=== PATIENT | male | born 1970 | race Caucasian/White ===

== ENCOUNTER → 2018-12-09 | Outpatient (CLI) | payer BC ==
[~2018-12-09] MED LIST: AMLO5TAB2 PO; FISH OIL OMEGA1 EACH PO; NFPRILOC40 PO; OMEP-10 PO; POLY17PO23 GT; PRED50TA PO; SULF1TAB35 PO; TRIA1TAB2 PO
--- NOTE | 2018-12-09 11:33 | Diagnostic Imaging Report ---
INDICATION: Right-sided chest pain. COMPARISON: 01/28/2013. FINDINGS: Frontal and lateral views of the chest demonstrate normal heart size and pulmonary vascularity. The lungs are clear. There are no signs of infiltrate, pleural effusions or pneumothoraces. The visualized osseous structures show no acute abnormalities. IMPRESSION: 1. No acute process. No signs of infiltrates, effusions or pneumothoraces. Dictated by: Dictated on workstation # [id number]
== END ==
LOC: RAD 11:15
PROVIDERS: ATTEND Nurse Practitioner
DX: R07.89 Other chest pain (principal); R06.02 Shortness of breath
CPT/HCPCS: 71046

== ENCOUNTER 2022-04-26 17:04 | Emergency (ER) | payer OTHER ==
[~2022-04-26] VITALS: Ht 177 cm; Wt 91.0 kg
[2022-04-26] MEDS ORDERED: NS IV 1000 ML 1,000 ML IV STA ×2 (17:39→19:08)
--- NOTE | 2022-04-26 17:44 | ED Abdominal Pain ---
General Chief Complaint: Abdominal/GI Problems Stated Complaint: N/V,DIARRHEA Source of Information: Patient Exam Limitations: No Limitations History of Present Illness Date Seen by Provider: Apr 26, 2022 Time Seen by Provider: 17:43 Initial Comments Patient is a 52-year-old male who presents ED with nausea vomiting diarrhea abdominal pain. Symptoms started on Sunday with episode of vomiting generalized abdominal discomfort and then diarrhea. He states he has been having 10+ episodes of diarrhea daily without any blood or mucus. Reports generalized abdominal pain worse to his lower abdomen. Decreased urine output. Has not been able to eat as it makes him sick. attempted to eat yogurt. Patient only vomited once on Sunday. No history of previous abdominal surgery. Did return from the [facility] over the weekend and did eat oysters but no one else got sick. Denies of any fever, chest pain, cough, sore throat, ear pain, headache. Patient states he feels dehydrated and weak. Patient takes Prilosec and attempted to take Carafate at home. Denies history of ulcers Allergies and Home Medications Allergies Coded Allergies: Penicillins (Verified Allergy, Unknown, 09/26/14) Patient Home Medication List Home Medication List Reviewed: Yes Amlodipine Besylate (Amlodipine Besylate) 5 Mg Tablet, 5 MG PO DAILY, (Reported) Entered as Reported by: ELLEN BURCH on 11/13/141255 Metronidazole (Metronidazole) 500 Mg Tablet, 500 MG PO TID Prescribed by: LYNN HOWARD on 04/26/222021 Omeprazole (Prilosec 20 Mg) 20 Mg Capsule.dr, 20 MG PO DAILY, (Reported) Entered as Reported by: IVETH LEES on 09/26/141917 Ondansetron (Ondansetron Odt) 4 Mg Tab.rapdis, 4 MG PO Q4H Prescribed by: LYNN HOWARD on 04/26/222021 Polyethylene Glycol (Miralax 17 Gm Packet) 17 Gm Pack, 17 GM GT BID, (Reported) Entered as Reported by: ELLEN BURCH on 11/13/14 1256 Review of Systems Review of Systems Constitutional: No chills, No diaphoresis; malaise, weakness EENTM: No Eye Pain Respiratory: Denies Cough, Denies Shortness of Air, Denies SOA at Rest Cardiovascular: Denies Chest Pain Gastrointestinal: Abdominal Pain, Diarrhea, Nausea, Vomiting Musculoskeletal: No back pain, No joint pain Skin: No change in color, No change in hair/nails Psychiatric/Neurological: Denies Anxiety, Denies Depressed All Other Systems Reviewed Negative Unless Noted: Yes Past Thinjsw-Rknhba-Wybqne Hx Immunizations Up To Date Tetanus Booster (TDap): Unknown Seasonal Allergies Seasonal Allergies: No Past Medical History Hypertension Reproductive Disorders: No Kidney Stones Gastroesophageal Reflux Adverse Reaction/Blood Tranf: No Physical Exam Vital Signs Vital Signs - First Documented 04/26/22 17:30 Temp 36.5 Pulse 98 Resp 20 B/P (MAP) 150/113 (125) Pulse Ox 96 O2 Delivery Room Air Capillary Refill : Height/Weight/BMI Height: 5'11.00" Weight: 199lbs. oz. 90.951946sq; BMI Method:Stated General Appearance: WD/WN, no apparent distress HEENT: PERRL/EOMI, normal ENT inspection, TMs normal, pharynx normal Neck: non-tender, full range of motion, supple Respiratory: chest non-tender, lungs clear, normal breath sounds, no respiratory distress, no accessory muscle use Cardiovascular: regular rate, rhythm, no edema, no gallop, no JVD Gastrointestinal: normal bowel sounds, soft, no organomegaly, tenderness (Left lower quadrant tenderness) Extremities: normal range of motion, non-tender, normal inspection Back: normal inspection, no CVA tenderness, no vertebral tenderness Neurologic/Psychiatric: sketch maker II-XII nml as tested, no motor/sensory deficits, alert, normal mood/affect, oriented x 3 Skin: normal color, warm/dry Progress/Results/Core Measures Results/Orders Lab Results Laboratory Tests Test 04/26/22 17:30 04/26/22 17:55 Range/Units White Blood Count 7.5 4.3-11.0 10^3/uL Red Blood Count 5.22 4.30-5.52 10^6/uL Hemoglobin 15.7 13.3-17.7 g/dL Hematocrit 44 40-54 % Mean Corpuscular Volume 84 80-99 fL Mean Corpuscular Hemoglobin 30 25-34 pg Mean Corpuscular Hemoglobin Concent 36 32-36 g/dL Red Cell Distribution Width 12.3 10.0-14.5 % Platelet Count 372 130-400 10^3/uL Mean Platelet Volume 9.6 9.0-12.2 fL Immature Granulocyte % (Auto) 0 % Neutrophils (%) (Auto) 59 42-75 % Lymphocytes (%) (Auto) 23 12-44 % Monocytes (%) (Auto) 14 H 0-12 % Eosinophils (%) (Auto) 4 0-10 % Basophils (%) (Auto) 1 0-10 % Neutrophils # (Auto) 4.4 1.8-7.8 10^3/uL Lymphocytes # (Auto) 1.7 1.0-4.0 10^3/uL Monocytes # (Auto) 1.0 0.0-1.0 10^3/uL Eosinophils # (Auto) 0.3 0.0-0.3 10^3/uL Basophils # (Auto) 0.1 0.0-0.1 10^3/uL Immature Granulocyte # (Auto) 0.0 0.0-0.1 10^3/uL Sodium Level 134 L 135-145 MMOL/L Potassium Level 3.4 L 3.6-5.0 MMOL/L Chloride Level 98 98-107 MMOL/L Carbon Dioxide Level 25 21-32 MMOL/L Anion Gap 11 5-14 MMOL/L Blood Urea Nitrogen 13 7-18 MG/DL Creatinine 0.92 0.60-1.30 MG/DL Estimat Glomerular Filtration Rate 101 BUN/Creatinine Ratio 14 Glucose Level 107 H 70-105 MG/DL Calcium Level 9.8 8.5-10.1 MG/DL Corrected Calcium 9.4 8.5-10.1 MG/DL Magnesium Level 2.1 1.6-2.4 MG/DL Total Bilirubin 1.1 H 0.1-1.0 MG/DL Aspartate Amino Transf (AST/SGOT) 21 5-34 U/L Alanine Aminotransferase (ALT/SGPT) 39 0-55 U/L Alkaline Phosphatase 82 40-136 U/L Total Protein 7.9 6.4-8.2 GM/DL Albumin 4.5 3.2-4.5 GM/DL Lipase 44 8-78 U/L Influenza Type A (RT-PCR) Not Detected Not Detecte Influenza Type B (RT-PCR) Not Detected Not Detecte SARS-CoV-2 RNA (RT-PCR) Not Detected Not Detecte My Orders Orders - BENNETT,RODRIGUEZ A PA Covid 19 Inhouse Test (04/26/22 17:34) Influenza A And B By Pcr (04/26/22 17:34) Cbc With Automated Diff (04/26/22 17:39) Comprehensive Metabolic Panel (04/26/22 17:39) Lipase (04/26/22 17:39) Ns Iv 1000 Ml (Sodium Chloride 0.9%) (04/26/22 17:39) Ondansetron Injection (Zofran Injectio (04/26/22 17:45) Magnesium (04/26/22 17:39) C Difficile Ag + Toxin A/B. (04/26/22 17:39) Stool Culture (04/26/22 17:39) Parasite Scrn Stool Giard Cryp (04/26/22 17:39) Ct Abdomen/Pelvis W (04/26/22 17:44) Iohexol Injection (Omnipaque 350 Mg/Ml 1 (04/26/22 18:00) Received Contrast (Hold Metformin- Contr (04/26/22 18:00) Ns (Ivpb) (Sodium Chloride 0.9% Ivpb Bag (04/26/22 18:00) Urinalysis (04/26/22 18:33) Ns Iv 1000 Ml (Sodium Chloride 0.9%) (04/26/22 19:08) Rx-Ondansetron Po (Rx-Zofran Po) (04/26/22 20:30) Medications Given in ED Current Medications Medications Dose Ordered Sig/Tom Route Start Time Stop Time Status Last Admin Dose Admin Iohexol 100 ml ONCE ONCE IV 04/26/22 18:00 04/26/22 18:01 DC 04/26/22 18:36 100 ML Ondansetron HCl 4 mg ONCE ONCE IVP 04/26/22 17:45 04/26/22 17:46 DC 04/26/22 17:57 4 MG Sodium Chloride 100 ml ONCE ONCE IV 04/26/22 18:00 04/26/22 18:01 DC 04/26/22 18:36 80 ML Vital Signs/I&O 04/26/22 17:30 Temp 36.5 Pulse 98 Resp 20 B/P (MAP) 150/113 (125) Pulse Ox 96 O2 Delivery Room Air Departure Communication (PCP) Patient presents ED with abdominal pain and diarrhea. Return from the [facility] over the weekend. He did eat oysters but states family members did as well and no one else became sick. He Did drink [facility] water. Has been having some vomiting and diarrhea 10+ episodes daily without any blood or mucus. Does have some left lower quadrant tenderness. Patient with normal white blood count. Heart rate at 98. Slightly hypertensive. Was given Zofran and 2 L of fluid. Slightly dehydrated here normal kidney function. Patient urinated before providing a urine sample. Waited for 3 hours for patient to provide a stool sample. Did try oral fluids without any vomiting but did not provide stool culture. Patient is concerned for possible GI infection. Due to the tenderness to his left lower quadrant rule out colitis versus diverticulitis CT abdomen and pelvis was ordered. Imaging is concerning for enteritis. No evidence of diverticulitis. Due to not able to provide stool culture patient was requesting to be discharged. Discussed with patient would be more concerning if he had a fever, elevated white blood count, blood or mucousy stool. His lab work was reassuring. This may be viral or something that he may have ate. Did offer outpatient lab work for stool culture, ova and parasitic, C. difficile. Was sent by primary care physician for stool cultures. Family and patient was insisting for antibiotics. Discussed with patient due to lab work and his current presentation and results that I do not think antibiotics is necessarily at this time. However due to potential parasitic from the water will consider Flagyl. Recommend probiotics. Discussed oral fluids, electrolytes. If diarrhea improves work to a more of a brat diet. If any worsening pain or symptoms fever, dark tarry stool or bloody stool to return back to ED or follow- up with your PCP Impression Primary Impression: Diarrhea Disposition: 01 HOME, SELF-CARE Condition: Stable Departure-Patient Inst. Decision time for Depature: 20:21 Referrals: ROQUE HERNANDEZ MD (PCP/Family) Primary Care Physician Patient Instructions: Diarrhea, Adult ED Add. Discharge Instructions: Recommend staying hydrated. Clear liquids for the next 2 to 3 days. May increase diet to more of a brat diet once diarrhea improves. Zofran for nausea. All discharge instructions reviewed with patient and/or family. Voiced understanding. Scripts Ondansetron (Ondansetron Odt) 4 Mg Tab.rapdis 4 MG PO Q4H, #8 TAB Prov: RODRIGUEZ BENNETT 04/26/22 Metronidazole (Metronidazole) 500 Mg Tablet 500 MG PO TID for 5 Days, #15 TAB Prov: RODRIGUEZ BENNETT 04/26/22 RODRIGUEZ BENNETT Apr 26, 2022 17:44
[2022-04-26] MEDS ORDERED: ONDANSETRON 4 MG/2 ML (SDV) Z0FRAN IVP ONE (17:45)
[2022-04-26 17:49] LABS: ALBUMIN 4.5 GM/DL (3.2-4.5)
[2022-04-26 17:50] LABS: POTASSIUM 3.4 MMOL/L (3.6-5.0)
[2022-04-26 17:51] LABS: BASOPHILS # (AUTO) 0.1 10^3/uL (0.0-0.1); BASOPHILS % (AUTO) 1 % (0-10); CALCIUM 9.8 MG/DL (8.5-10.1); EOSINOPHILS # (AUTO) 0.3 10^3/uL (0.0-0.3); EOSINOPHILS % (AUTO) 4 % (0-10); HEMATOCRIT 44 % (40-54); HEMOGLOBIN 15.7 g/dL (13.3-17.7); LYMPHOCYTES # (AUTO) 1.7 10^3/uL (1.0-4.0); LYMPHOCYTES % (AUTO) 23 % (12-44); MEAN CORPUSCULAR HEMOGLOBIN 30 pg (25-34); MEAN CORPUSCULAR HGB CONC 36 g/dL (32-36); MEAN CORPUSCULAR VOLUME 84 fL (80-99); MEAN PLATELET VOLUME 9.6 fL (9.0-12.2); MONOCYTES % (AUTO) 14 % (0-12); NEUTROPHILS # (AUTO) 4.4 10^3/uL (1.8-7.8); NEUTROPHILS % (AUTO) 59 % (42-75); PLATELET COUNT 372 10^3/uL (130-400); WHITE BLOOD COUNT 7.5 10^3/uL (4.3-11.0)
[2022-04-26 17:52] LABS: TOTAL PROTEIN 7.9 GM/DL (6.4-8.2)
[2022-04-26 17:54] LABS: BILIRUBIN,TOTAL 1.1 MG/DL (0.1-1.0)
[2022-04-26 17:55] LABS: CREATININE SERUM 0.92 MG/DL (0.60-1.30)
[2022-04-26 17:58] LABS: MAGNESIUM 2.1 MG/DL (1.6-2.4)
[2022-04-26] MEDS ORDERED: HOLD METFORMIN - RECEIVED CONTRAST 20 ML VIAL IV SCH (18:00)
[2022-04-26] MEDS ORDERED: NS 100 ML (IVPB) BAG IV ONE (18:00)
[2022-04-26] MEDS ORDERED: IOHEXOL 350 MG/ML 100 ML (OMNIPAQUE 350) VIAL IV ONE (18:00)
--- NOTE | 2022-04-26 18:54 | Diagnostic Imaging Report ---
PROCEDURE: CT abdomen and pelvis with contrast. TECHNIQUE: Multiple contiguous axial images were obtained through the abdomen and pelvis after administration of intravenous contrast. Auto Exposure Controls were utilized during the CT exam to meet ALARA standards for radiation dose reduction. All CT scans use one or more of the following dose optimizing techniques: Automated exposure control, MA and/or KvP adjustment based on patient size and exam type or iterative reconstruction. INDICATION: Left lower quadrant abdominal pain. COMPARISON: 09/26/2014. FINDINGS: Lung bases demonstrate no findings of pneumonia or edema. There is no pleural or pericardial effusion. There is some minimal atelectasis in the right middle lobe. The liver demonstrates no evidence of a focal intrahepatic abnormality. There are multiple gallstones within the gallbladder without gallbladder thickening or findings of biliary dilatation. The portal veins are patent. Pancreas demonstrates mild atrophy without focal abnormality. The spleen is normal in size. There is no adrenal mass. The kidneys enhance normally and are nonobstructed. There is a low-density simple-appearing left renal cyst. There are no findings of perinephric fat stranding. The ureters are normal in caliber. There are diffuse fluid-filled loops of both small and large bowel. There is no bowel dilation present to suggest obstruction. There are scattered colonic diverticula, but no regions of focal colonic thickening or pericolonic fat stranding to suggest diverticulitis. The appendix is normal. There is a suggestion that there may be some slight mucosal hyperenhancement at the level of the terminal ileum. There is trace free fluid within the pelvis. There are no findings of abscess. There is no free air. There is no adenopathy. The bladder is unremarkable. The aorta is normal in caliber. There is no acute osseous abnormality. IMPRESSION: 1. Diffuse fluid-filled loops of nondilated small and large bowel. There may be some slight mucosal enhancement of the distal ileum. There is diverticulosis, but no evidence to suggest diverticulitis. The liquid-density stool contents suggest a diarrheal disease and may reflect an enteritis. There are no findings to suggest obstruction. 2. The appendix is normal. 3. Trace free fluid within the pelvis without findings of abscess or free air. 4. Cholelithiasis without biliary dilatation. Dictated by: Dictated on workstation # [id number]
[2022-04-26] MEDS ORDERED: METR-145 PO (20:22)
[2022-04-26] MEDS ORDERED: ONDA4TAB11 PO (20:22)
[2022-04-26 20:28] VITALS: BP 122/70
[2022-04-26 20:30] LABS: BILIRUBIN,URINE NEGATIVE (NEGATIVE); CLARITY,URINE CLEAR; COLOR,URINE YELLOW; GLUCOSE, URINE (UA) NEGATIVE (NEGATIVE); KETONES,URINE 1+ (NEGATIVE); LEUKOCYTE ESTERASE ,URINE NEGATIVE (NEGATIVE); NITRITE,URINE NEGATIVE (NEGATIVE); PH,URINE 5.5 (5-9); PROTEIN,URINE 1+ (NEGATIVE)
[2022-04-26] MEDS ORDERED: RX-ONDANSETRON 4 MG ODT (ZOFRAN) PPK #4 PO ONE (20:30)
[2022-04-26 20:39] LABS: BACTERIA,URINE NEGATIVE /HPF; SQUAMOUS EPITHELIAL CELL,UR RARE /HPF; WBC,URINE RARE /HPF
== END 2022-04-26 20:29 | disposition home or self-care (01) ==
LOC: EDUNIT# 17:04 → ER 17:06
DX: R19.7 Diarrhea, unspecified (principal); R11.2 Nausea with vomiting, unspecified; R10.32 Left lower quadrant pain; I10 Essential (primary) hypertension; E86.0 Dehydration; Z20.822 Contact with and (suspected) exposure to COVID-19
CPT/HCPCS: 36415; 74177; 80053; 81000; 83690; 83735; 85025; 87328; 87636

== ENCOUNTER → 2022-04-27 | Outpatient (CLI) | payer OTHER ==
[~2022-04-27] MED LIST changes: +METR-145 PO; +ONDA4TAB11 PO
== END ==
LOC: LABNPT 16:00
PROVIDERS: ATTEND Physician Assistant
DX: R19.7 Diarrhea, unspecified (principal)
CPT/HCPCS: 87015; 87045; 87046; 87324; 87328; 87329; 87449; 87899

== ENCOUNTER 2023-05-11 01:19 | Emergency (ER) | payer OTHER ==
[~2023-05-11] VITALS: Ht 177 cm; Wt 92.0 kg
[2023-05-11] MEDS ORDERED: ASPIRIN 81 MG CHEWABLE TABLET PO ONE (01:45)
[2023-05-11 01:52] LABS: BASOPHILS # (AUTO) 0.2 10^3/uL (0.0-0.1); BASOPHILS % (AUTO) 2 % (0-10); EOSINOPHILS # (AUTO) 0.5 10^3/uL (0.0-0.3); EOSINOPHILS % (AUTO) 6 % (0-10); HEMATOCRIT 42 % (40-54); HEMOGLOBIN 14.3 g/dL (13.3-17.7); LYMPHOCYTES # (AUTO) 3.3 10^3/uL (1.0-4.0); LYMPHOCYTES % (AUTO) 39 % (12-44); MEAN CORPUSCULAR HEMOGLOBIN 31 pg (25-34); MEAN CORPUSCULAR HGB CONC 34 g/dL (32-36); MEAN CORPUSCULAR VOLUME 90 fL (80-99); MEAN PLATELET VOLUME 9.8 fL (9.0-12.2); MONOCYTES # (AUTO) 0.4 10^3/uL (0.0-1.0); MONOCYTES % (AUTO) 5 % (0-12); NEUTROPHILS % (AUTO) 47 % (42-75); PLATELET COUNT 272 10^3/uL (130-400); WHITE BLOOD COUNT 8.4 10^3/uL (4.3-11.0)
[2023-05-11 02:07] LABS: INR 0.9 (0.8-1.4); PROTHROMBIN TIME PATIENT 12.2 SEC (12.2-14.7)
[2023-05-11 02:08] LABS: PARTIAL THROMBOPLASTIN TIME 35 SEC (24-35)
[2023-05-11 02:09] LABS: ALBUMIN 4.3 GM/DL (3.2-4.5); CHLORIDE 107 MMOL/L (98-107); POTASSIUM 3.7 MMOL/L (3.6-5.0); SODIUM 140 MMOL/L (135-145)
[2023-05-11 02:11] LABS: AMYLASE 51 U/L (25-125)
[2023-05-11 02:12] LABS: GLUCOSE 164 MG/DL (70-105); TOTAL PROTEIN 7.4 GM/DL (6.4-8.2)
[2023-05-11 02:13] LABS: BILIRUBIN,TOTAL 0.4 MG/DL (0.1-1.0); CARBON DIOXIDE 22 MMOL/L (21-32)
[2023-05-11 02:15] LABS: ALKALINE PHOSPHATASE 86 U/L (40-136); CREATININE SERUM 0.97 MG/DL (0.60-1.30); FIBRIN DEGRADATION PRODUCTS < 0.27 UG/ML (0.00-0.49); GFR ESTIMATED 94
[2023-05-11 02:16] LABS: BUN/CREATININE RATIO 13
[2023-05-11 02:18] LABS: ALANINE AMINOTRANSFERASE 50 U/L (0-55); MAGNESIUM 2.1 MG/DL (1.6-2.4)
[2023-05-11 02:19] LABS: LIPASE 30 U/L (8-78)
[2023-05-11 02:20] LABS: CREATINE KINASE 146 U/L (30-200)
[2023-05-11 02:26] LABS: CREATINE KINASE MB 0.9 NG/ML (<6.6)
[2023-05-11 03:49] LABS: AMPHETAMINE SCREEN, URINE NEGATIVE (NEGATIVE); BARBITURATE SCREEN URINE NEGATIVE (NEGATIVE); BENZODIAZEPINES SCREEN URINE NEGATIVE (NEGATIVE); CANNABINOID SCREEN, URINE NEGATIVE (NEGATIVE); COCAINE SCREEN URINE NEGATIVE (NEGATIVE); METHADONE STAT NEGATIVE (NEGATIVE); OPIATE SCREEN URINE NEGATIVE (NEGATIVE); OXYCODONE STAT NEGATIVE (NEGATIVE); PROPOXYPHENE STAT NEGATIVE (NEGATIVE); TRICYCLIC ANTIDEPRESSANTS SCRE NEGATIVE (NEGATIVE)
[2023-05-11] MEDS ORDERED: HOLD METFORMIN - RECEIVED CONTRAST 20 ML VIAL IV SCH (04:00)
[2023-05-11] MEDS ORDERED: IOHEXOL 350 MG/ML 100 ML (OMNIPAQUE 350) VIAL IV ONE (04:00)
[2023-05-11] MEDS ORDERED: NS 100 ML (IVPB) BAG IV ONE (04:00)
--- NOTE | 2023-05-11 04:05 | ED General ---
General Chief Complaint: Respiratory Problems Stated Complaint: SOB,COUGH,CONGESTED Nursing Triage Note: PATIENT AMBULATORY TO ED WITH COMPLAINT OF SOB X1 MONTH. STATES WORSE AT NIGHT, STATES ABOUT EVERY TWO HOURS AWAKE COUGHING, LOTS OF MUCOUS. PATIENT STATES TONIGHT BREATHING WORSE, STATES FEELS LIKE BREATHING THROUGH A STRAW. DENIES TREATMENT PRIOR TO TONIGHT. Source of Information: Patient History of Present Illness Date Seen by Provider: May 11, 2023 Time Seen by Provider: 01:34 Initial Comments PT ARRIVES VIA POV FROM HOME WITH FEMALE S.O. PT STATES FOR AT LEAST A MONTH HE HAS HAD: -COUGH AND CONGESTION--COUGH WITH CLEAR SPUTUM. STATES SOMETIMES HE COUGHS UNTIL HE THROWS UP MUCOUS, AND SOMETIMES COUGHS SO HARD HE FEELS DIZZY AND FEELS LIKE HE IS GOING TO PASS OUT -SHORTNESS OF BREATH--STATES IT FEELS LIKE HE IS BREATHING THROUGH A STRAW -CHEST PAIN / TIGHTNESS -BILATERAL SHOULDER BLADE PAIN/TIGHTNESS NO FEVER/SWEATS/CHILLS NO NAUSEA/VOMITING NO SWELLING IN LEGS/FEET NO PALPITATIONS NOTHING WORSENS OR IMPROVES SYMPTOMS, BUT SYMPTOMS WORSE AT NIGHT WITH COUGH FREQUENTLY WAKING HIM UP DURING THE NIGHT. SYMPTOMS ARE CONSTANT HE HAS NOT TAKEN ANYTHING FOR ANY OF HIS SYMPTOMS AT ANY TIME SYMPTOMS NO DIFFERENT TONIGHT IN ANYWAY HAS NOT SOUGHT CARE UNTIL TONIGHT NO HISTORY OF SIMILAR PT IS NOT COVID OR FLU VACCINATED PT IS FORMER SMOKER--1 PPD--QUIT YEARS AGO PT DRINKS "A FEW BEERS" ON REGULAR BASIS. CLAIMS NONE TODAY PT HAS HTN. DENIES ANY PRIOR SURGERIES PCP: DR. HERNANDEZ--APPOINTMENT SOMETIME IN . ALSO GOES TO [facility] AND HAS AN APPOINTMENT THERE JUN 23 Allergies and Home Medications Allergies Coded Allergies: Penicillins (Verified Allergy, Unknown, 09/26/14) Patient Home Medication List Home Medication List Reviewed: Yes Amlodipine Besylate (Amlodipine Besylate) 5 Mg Tablet, 5 MG PO DAILY, (Reported) Entered as Reported by: ELLEN BURCH on 11/13/14 125 Metronidazole (Metronidazole) 500 Mg Tablet, 500 MG PO TID Prescribed by: LYNN HOWARD on 04/26/222021 Omeprazole (Prilosec 20 Mg) 20 Mg Capsule., 20 MG PO DAILY, (Reported) Entered as Reported by: IVETH LEES on 09/26/141917 Ondansetron (Ondansetron Odt) 4 Mg Tab.rapdis, 4 MG PO Q4H Prescribed by: LYNN HOWARD on 04/26/222021 Polyethylene Glycol (Miralax 17 Gm Packet) 17 Gm Pack, 17 GM GT BID, (Reported) Entered as Reported by: ELLEN BURCH on 11/13/14 1256 Review of Systems Review of Systems Constitutional: no symptoms reported; No chills, No diaphoresis, No fever EENTM: no symptoms reported; No hoarseness, No nose congestion, No throat pain, No throat swelling Respiratory: see HPI, cough; No orthopnea; phlegm, short of breath; No stridor, No wheezing Cardiovascular: see HPI, chest pain; No edema, No palpitations, No syncope Gastrointestinal: no symptoms reported Genitourinary: no symptoms reported Musculoskeletal: see HPI, back pain Skin: no symptoms reported Psychiatric/Neurological: No Symptoms Reported Hematologic/Lymphatic: No Symptoms Reported Immunological/Allergic: no symptoms reported Past Sxzggob-Rmyqns-Dctcwi Hx Patient Social History Tobacco Use?: Yes Tobacco type used: Cigarettes Smoking Status: Former Smoker Smokeless Tobacco Frequency: Current Everyday User Substance use?: No Alcohol Use?: Yes Alcohol type: Beer Alcohol Frequency: Couple times a week Immunizations Up To Date Tetanus Booster (TDap): Unknown Influenza Vaccine Up-to-Date: No; Not Current First/Initial COVID19 Vaccinat: n/a Second COVID19 Vaccination Levi: n/a Third COVID19 Vaccination Date: n/a Seasonal Allergies Seasonal Allergies: No Past Medical History Surgeries: Yes (COLONOSCOPY) Respiratory: No Cardiac: Yes Hypertension Reproductive Disorders: No Genitourinary: Yes Kidney Stones Gastrointestinal: Yes Gastroesophageal Reflux Musculoskeletal: No Endocrine: No HEENT: No Cancer: No Psychosocial: No Integumentary: No Blood Disorders: No Adverse Reaction/Blood Tranf: No Family Medical History SOCIAL HISTORY: -SMOKED 1 PPD, QUIT A FEW YEARS AGO -ETOH--12 PACK/WEEKEND -DENIES DRUG USE Physical Exam Vital Signs Vital Signs - First Documented 05/11/23 01:32 Temp 37.0 Pulse 78 Resp 18 B/P (MAP) 142/97 (112) Pulse Ox 98 O2 Delivery Room Air Capillary Refill : Less Than 3 Seconds Height, Weight, BMI Height: 5'11.00" Weight: 199lbs. oz. 90.139161nw; 29.00 BMI Method:Stated General Appearance: No Apparent Distress, WD/WN, Other (DOES NOT APPEAR ILL OR TO BE IN ANY DISCOMFORT OR DISTRESS) HEENT: PERRL/EOMI, Normal ENT Inspection Neck: Normal Inspection Respiratory: Chest Non Tender, Normal Breath Sounds, No Accessory Muscle Use, No Respiratory Distress Cardiovascular: Regular Rate, Rhythm, No Edema, No Gallop, No JVD, No Murmur, Normal Peripheral Pulses Gastrointestinal: Normal Bowel Sounds, No Organomegaly, No Pulsatile Mass, Non Tender, Soft Back: Normal Inspection Extremity: Normal Capillary Refill, Normal Inspection, Normal Range of Motion, Non Tender, No Calf Tenderness, No Pedal Edema Neurologic/Psychiatric: Alert, Oriented x3, No Motor/Sensory Deficits, Normal Mood/Affect, video intern II-XII Norm as Tested Skin: Normal Color, Warm/Dry, Tattoos/Piercings (TATTOOS) Progress/Results/Core Measures Suspected Sepsis SIRS Temperature: Pulse: 78 Respiratory Rate: 18 Laboratory Tests 05/11/23 01:45: White Blood Count 8.4 Blood Pressure 142 /97 Mean: 112 Laboratory Tests 05/11/23 01:45: Creatinine 0.97, INR Comment 0.9, Platelet Count 272, Total Bilirubin 0.4 Results/Orders Lab Results Laboratory Tests Test 05/11/23 01:35 05/11/23 01:45 05/11/23 03:28 Range/Units Influenza Type A (RT-PCR) Not Detected Not Detecte Influenza Type B (RT-PCR) Not Detected Not Detecte SARS-CoV-2 RNA (RT-PCR) Not Detected Not Detecte White Blood Count 8.4 4.3-11.0 10^3/uL Red Blood Count 4.69 4.30-5.52 10^6/uL Hemoglobin 14.3 13.3-17.7 g/dL Hematocrit 42 40-54 % Mean Corpuscular Volume 90 80-99 fL Mean Corpuscular Hemoglobin 31 25-34 pg Mean Corpuscular Hemoglobin Concent 34 32-36 g/dL Red Cell Distribution Width 13.4 10.0-14.5 % Platelet Count 272 130-400 10^3/uL Mean Platelet Volume 9.8 9.0-12.2 fL Immature Granulocyte % (Auto) 0 % Neutrophils (%) (Auto) 47 42-75 % Lymphocytes (%) (Auto) 39 12-44 % Monocytes (%) (Auto) 5 0-12 % Eosinophils (%) (Auto) 6 0-10 % Basophils (%) (Auto) 2 0-10 % Neutrophils # (Auto) 4.0 1.8-7.8 10^3/uL Lymphocytes # (Auto) 3.3 1.0-4.0 10^3/uL Monocytes # (Auto) 0.4 0.0-1.0 10^3/uL Eosinophils # (Auto) 0.5 H 0.0-0.3 10^3/uL Basophils # (Auto) 0.2 H 0.0-0.1 10^3/uL Immature Granulocyte # (Auto) 0.0 0.0-0.1 10^3/uL Prothrombin Time 12.2 12.2-14.7 SEC INR Comment 0.9 0.8-1.4 Activated Partial Thromboplast Time 35 24-35 SEC D-Dimer < 0.27 0.00-0.49 UG/ML Sodium Level 140 135-145 MMOL/L Potassium Level 3.7 3.6-5.0 MMOL/L Chloride Level 107 98-107 MMOL/L Carbon Dioxide Level 22 21-32 MMOL/L Anion Gap 11 5-14 MMOL/L Blood Urea Nitrogen 13 7-18 MG/DL Creatinine 0.97 0.60-1.30 MG/DL Estimat Glomerular Filtration Rate 94 BUN/Creatinine Ratio 13 Glucose Level 164 H 70-105 MG/DL Calcium Level 9.0 8.5-10.1 MG/DL Corrected Calcium 8.8 8.5-10.1 MG/DL Magnesium Level 2.1 1.6-2.4 MG/DL Total Bilirubin 0.4 0.1-1.0 MG/DL Aspartate Amino Transf (AST/SGOT) 26 5-34 U/L Alanine Aminotransferase (ALT/SGPT) 50 0-55 U/L Alkaline Phosphatase 86 40-136 U/L Total Creatine Kinase 146 30-200 U/L Creatine Kinase MB 0.9 <6.6 NG/ML Myoglobin 24.5 10.0-92.0 NG/ML Troponin I < 0.028 <0.028 NG/ML B-Type Natriuretic Peptide 19.5 <100.0 PG/ML Total Protein 7.4 6.4-8.2 GM/DL Albumin 4.3 3.2-4.5 GM/DL Amylase Level 51 25-125 U/L Lipase 30 8-78 U/L Serum Alcohol < 10 <10 MG/DL Urine Opiates Screen NEGATIVE NEGATIVE Urine Oxycodone Screen NEGATIVE NEGATIVE Urine Methadone Screen NEGATIVE NEGATIVE Urine Propoxyphene Screen NEGATIVE NEGATIVE Urine Barbiturates Screen NEGATIVE NEGATIVE Ur Tricyclic Antidepressants Screen NEGATIVE NEGATIVE Urine Phencyclidine Screen NEGATIVE NEGATIVE Urine Amphetamines Screen NEGATIVE NEGATIVE Urine Methamphetamines Screen NEGATIVE NEGATIVE Urine Benzodiazepines Screen NEGATIVE NEGATIVE Urine Cocaine Screen NEGATIVE NEGATIVE Urine Cannabinoids Screen NEGATIVE NEGATIVE My Orders Orders - RAFAL DEL CID DO Covid 19 Inhouse Test (05/11/23 01:32) Influenza A And B By Pcr (05/11/23 01:32) Cbc With Automated Diff (05/11/23 01:37) Magnesium (05/11/23 01:37) Chest 1 View, Ap/Pa Only (05/11/23 01:37) Ekg Tracing (05/11/23 01:37) Comprehensive Metabolic Panel (05/11/23 01:37) Myoglobin Serum (05/11/23 01:37) Protime With Inr (05/11/23 01:37) Partial Thromboplastin Time (05/11/23 01:37) O2 (05/11/23 01:37) Monitor-Rhythm Ecg Trace Only (05/11/23 01:37) Ed Iv/Invasive Line Start (05/11/23 01:37) Creatine Kinase (05/11/23 01:37) Creatine Kinase Mb (05/11/23 01:37) Lipase (05/11/23 01:37) Amylase (05/11/23 01:37) Bnp Delta (05/11/23 01:37) Fibrin Degradation Products (05/11/23 01:37) Troponin I [place] (05/11/23 01:37) Aspirin Chewable Tablet (Aspirin Chewabl (05/11/23 01:45) Alcohol (05/11/23 01:37) Drug Screen Stat (Urine) (05/11/23 01:37) Ct Angio Chest W (R/O Pe) (05/11/23 02:55) Ct Neck (Soft Tissue) Wo (05/11/23 03:01) Iohexol Injection (Omnipaque 350 Mg/Ml 1 (05/11/23 04:00) Received Contrast (Hold Metformin- Contr (05/11/23 04:00) Ns (Ivpb) 100 Ml (Sodium Chloride 0.9% 1 (05/11/23 04:00) Medications Given in ED Current Medications Medications Dose Ordered Sig/Tom Route Start Time Stop Time Status Last Admin Dose Admin Aspirin 324 mg ONCE ONCE PO 05/11/23 01:45 05/11/23 01:46 DC 05/11/23 01:54 324 MG Iohexol 100 ml ONCE ONCE IV 05/11/23 04:00 05/11/23 04:01 DC 05/11/23 03:52 78 ML Sodium Chloride 100 ml ONCE ONCE IV 05/11/23 04:00 05/11/23 04:01 DC 05/11/23 03:52 70 ML Vital Signs/I&O 05/11/23 01:32 Temp 37.0 Pulse 78 Resp 18 B/P (MAP) 142/97 (112) Pulse Ox 98 O2 Delivery Room Air Capillary Refill : Less Than 3 Seconds Blood Pressure Mean: 112 Progress Note : Progress Note VITALS ON ARRIVAL: TEMP 37.0=98.6, HR 78, RR 18, BP 142/97, O2 SAT 98-100% ON ROOM AIR LABS: -CBC NORMAL -CMP NORMAL, GLUCOSE 164 -TROPONIN NEGATIVE -BNP NORMAL -D-DIMER NORMAL/NEGATIVE -ETOH AND UDS NEGATIVE -COVID AND FLU TESTS NEGATIVE EKG IS NORMAL CXR IS UNREMARKABLE, PENDING RADIOLOGIST REVIEW MARKED DELAY IN OBTAINING CT RESULTS 0520--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 STILL HAS NOT BEEN ASSIGNED TO RADIOLOGIST. SHE WILL CALL STAT RAD TO TRY TO EXPEDITE READING. CT NECK SOFT TISSUES CT CHEST ANGIOGRAM UNEVENTFUL ER STAY NO COUGH NO DYSPNEA NO HYPOXIA NO FEVER VOICE IS NORMAL AND NO STRIDOR OR WHEEZING. VITALS STABLE, AFEBRILE REVIEWED PRIOR RECORDS, ER VISITS, SINGLE ADMIT IN 2013, TESTS/PROCEDURES. ECG Initial ECG Impression Date: May 11, 2023 Initial ECG Impression Time: 01:46 Initial ECG Rate: 65 Initial ECG Rhythm: Normal Sinus Initial ECG Intervals: Normal Initial ECG Impression: Normal Diagnostic Imaging Comments CXR--NO ACUTE PROCESS, PENDING RADIOLOGIST REVIEW CT CHEST ANGIOGRAM--PER RADIOLOGIST REPORT AT 0550 FINDINGS: No pulmonary artery filling defects. Normal caliber thoracic aorta. Borderline heart size. No pericardial effusion. No lymphadenopathy. The lungs are clear. No pleural effusion or pneumothorax. Cholelithiasis without secondary findings cholecystitis. No acute osseous findings. IMPRESSION: 1. No pulmonary emboli. 2. No acute CT findings in the chest. CT NECK SOFT TISSUES--PER RADIOLOGIST REPORT AT 0550 FINDINGS: No suspicious mass in the pharynx or larynx. The floor of the mouth, tongue base, epiglottis and retropharyngeal space are negative on this noncontrast exam. No cervical lymphadenopathy. The thyroid and major salivary glands are grossly negative. Moderate spondylotic changes in the cervical spine are greatest at C5-C7. No acute osseous findings. Lung apices are clear. Visualized paranasal sinuses are unremarkable. Small nonspecific mastoid effusion. IMPRESSION: 1. No acute CT findings in the neck on this noncontrast exam. 2. Nonspecific left mastoid effusion. Reviewed: Reviewed by Me Departure Impression Primary Impression: Chest pain Additional Impressions: Cough Cholelithiasis POSSIBLE GERD Disposition: HOME, SELF-CARE Condition: Stable Departure-Patient Inst. Decision time for Depature: 05:54 Referrals: NUNO CONTRERAS BRETT D DO TAYLOR, JOHN D MD (PCP/Family) Primary Care Physician Patient Instructions: Acid Reflux and GERD in Adults (DC), Chest Pain, Adult ED, Cough, Adult ED, Gallstones ED, Gallbladder Diet Add. Discharge Instructions: CLEAR LIQUIDS--NO COFFEE POP OR TEA OR ALCOHOL BLAND DIET--NO SPICY, ACIDIC, OR HIGH FAT FOODS OR DRINKS FOLLOW UP WITH DR. SOW OR DR. CONTRERAS, SURGEONS, FOR FURTHER EVALUATION OF GALLSTONES FOLLOW UP WITH YOUR REGULAR DR NEXT WEEK FOR RECHECK All discharge instructions reviewed with patient and/or family. Voiced understanding. Scripts Pantoprazole Sodium (Protonix) 40 Mg Tablet.dr 40 MG PO DAILY, #15 TAB Prov: RAFAL DEL CID DO 05/11/23 Benzonatate (TESSALON PERLES) 100 Mg Capsule 200 MG PO TID, #30 CAP Prov: MARIA EUGENIA,RAFAL K DO 05/11/23 Guaifenesin/Dextromethorphan (Mucinex Dm ER 1,200-60 mg Tab) 1,200 Mg-60 Mg Tbmp.12hr 1 EACH PO BID, #20 EA Prov: RAFAL DEL CID DO 05/11/23 Doxycycline Hyclate (Doxycycline Hyclate) 100 Mg Tablet 100 MG PO BID, #20 TAB 0 Refills Prov: RAFAL DEL CID DO 05/11/23 RAFAL DEL CID DO May 11, 2023 04:05
--- NOTE | 2023-05-11 05:42 | Diagnostic Imaging Report ---
EXAM: CT ANGIO CHEST W (R/O PE) TECHNIQUE: 3-D reconstructions, including MIPS, of the angiographic images are created and reviewed by the radiologist. INDICATION: Chest pain. Dyspnea. COMPARISON: Chest radiograph 05/11/2023. FINDINGS: No pulmonary artery filling defects. Normal caliber thoracic aorta. Borderline heart size. No pericardial effusion. No lymphadenopathy. The lungs are clear. No pleural effusion or pneumothorax. Cholelithiasis without secondary findings cholecystitis. No acute osseous findings. IMPRESSION: 1. No pulmonary emboli. 2. No acute CT findings in the chest. Dictated by: Dictated on workstation # [id number]
--- NOTE | 2023-05-11 05:46 | Diagnostic Imaging Report ---
PROCEDURE: CT neck soft tissue without contrast. TECHNIQUE: Multiple contiguous axial images were obtained through the neck without the use of intravenous contrast. Auto Exposure Controls were utilized during the CT exam to meet ALARA standards for radiation dose reduction. INDICATION: Difficulty swallowing. Dyspnea. COMPARISON: None. FINDINGS: No suspicious mass in the pharynx or larynx. The floor of the mouth, tongue base, epiglottis and retropharyngeal space are negative on this noncontrast exam. No cervical lymphadenopathy. The thyroid and major salivary glands are grossly negative. Moderate spondylotic changes in the cervical spine are greatest at C5-C7. No acute osseous findings. Lung apices are clear. Visualized paranasal sinuses are unremarkable. Small nonspecific mastoid effusion. IMPRESSION: 1. No acute CT findings in the neck on this noncontrast exam. 2. Nonspecific left mastoid effusion. Dictated by: Dictated on workstation # [id number]
[2023-05-11] MEDS ORDERED: DOXY100T2 PO (05:56)
[2023-05-11] MEDS ORDERED: BENZ100C18 PO (05:56)
[2023-05-11] MEDS ORDERED: GUAI1TBM19 PO (05:56)
[2023-05-11] MEDS ORDERED: PANT40TA2 PO (05:57)
[2023-05-11 06:04] VITALS: BP 126/85
--- NOTE | 2023-05-11 06:52 | Diagnostic Imaging Report ---
EXAMINATION: Chest 1 view HISTORY: Chest pain. COMPARISON: 12/09/2018. FINDINGS: The lung volumes are normal. No focal consolidation is seen. No large pleural effusion or pneumothorax is seen. The cardiomediastinal silhouette is normal in size and contour. No acute osseous abnormality is seen. IMPRESSION: 1. No acute pleuroparenchymal process. Dictated by: Dictated on workstation # [id number]
== END 2023-05-11 06:06 | disposition home or self-care (01) ==
LOC: EDUNIT# 01:19 → ER 01:22
DX: R07.9 Chest pain, unspecified (principal); R05.9 Cough, unspecified; K80.20 Calculus of gallbladder without cholecystitis without obstruction; Z87.891 Personal history of nicotine dependence; Z28.310 Unvaccinated for COVID-19; Z20.822 Contact with and (suspected) exposure to COVID-19; Z88.0 Allergy status to penicillin
CPT/HCPCS: 36415; 70490; 71045; 71275; 80053; 80306; 80320; 82150; 82550; 82553; 83690; 83735; 83874; 83880; 84484; 85025; 85379; 85610; 85730; 87636; 93005; 93041

== ENCOUNTER 2023-06-26 08:37 | Day surgery (SDC) | payer OTHER ==
[~2023-06-26] VITALS: Ht 177.8 cm; Wt 93.0 kg
[~2023-06-26 08:37] MED LIST changes: +BENZ100C18 PO; +DOXY100T2 PO; +GUAI1TBM19 PO; +PANT40TA2 PO; +VILA20TA2 PO
[2023-06-26] MEDS ORDERED: LACTATED RINGERS 1,000 ML 1,000 ML IV STA (08:38)
[2023-06-26] MEDS ORDERED: HURRICAINE EXT TUBE (BENZOCAINE) XX PRN (08:45)
[2023-06-26 09:12] VITALS: BP 129/88
--- NOTE | 2023-06-26 11:11 | Anesthesia-General Post-Op ---
MAC Patient Condition Mental Status/LOC: Same as Preop Cardiovascular: Satisfactory Nausea/Vomiting: Absent Respiratory: Satisfactory Pain: Controlled Complications: Absent Post Op Complications Complications None Follow Up Care/Instructions Patient Instructions None needed. Anesthesiology Discharge Order Discharge Order Patient is doing well, no complaints, stable vital signs, no apparent adverse anesthesia problems. No complications reported per nursing. MAGUE ABEBE CRNA Jun 26, 2023 11:11
--- NOTE | 2023-06-26 11:12 | Progress Note-Post Operative ---
Post-Operative Progess Note Surgeon (s)/Line Installation Supervisor (s) Surgeon DESIRE SOW DO Line Installation Supervisor: N/A Pre-Operative Diagnosis GERD, FHx of colon cancer Post-Operative Diagnosis Gastritis, diverticulosis, sigmoid polyp Procedure & Operative Findings Date of Procedure 06/26/23 Procedure Performed/Findings EGD with biopsies, colonoscopy with hot biopsy, polypectomy x1 Anesthesia Type per CIRCULATION WORKER Estimated Blood Loss Estimated blood loss (mL): none Specimens/Packing Specimens Removed Antrum, body, GE, sigmoid polyp DESIRE SOW DO Jun 26, 2023 11:12
[2023-06-26] MEDS ORDERED: SUCR1TAB36 PO (11:13)
--- NOTE | 2023-06-26 11:13 | Discharge Inst-Simple/Standard ---
Discharge Inst-Standard Discharge Medications New, Converted or Re-Newed RX: Transmitted to Pharmacy Patient Instructions/Follow Up Plan of Care/Instructions/FU: 2 weeks Johnathan Activity as Tolerated: Yes Discharge Diet: Regular Diet (high fiber) DESIRE SOW DO Jun 26, 2023 11:13
[2023-06-26 11:15] VITALS: BP 124/59
[2023-06-26 11:25] VITALS: BP 125/89
[2023-06-26 11:41] VITALS: BP 125/89
--- NOTE | 2023-06-26 20:21 | OPERATIVE REPORT ---
DATE OF SERVICE: 06/26/2023 PREOPERATIVE DIAGNOSES: Gastroesophageal reflux disease, family history of colon cancer. POSTOPERATIVE DIAGNOSES: Gastritis, diverticulosis, sigmoid polyp. PROCEDURES: EGD with biopsies, colonoscopy with hot biopsy polypectomy x1. SURGEON: Desire Mann DO ANESTHESIA: Per INSPECTING ENGINEER. ESTIMATED BLOOD LOSS: None. COMPLICATIONS: None. INDICATIONS: The patient is a 53-year-old male with GERD symptoms and also family history of colon cancer. He understands risks and benefits of procedures and wished to proceed. Consent was signed in chart. DESCRIPTION OF PROCEDURE: The patient was taken to the endoscopy suite, placed in left lateral recumbent position. Timeout was performed. Scope was inserted in the mouth, down the esophagus, stomach and duodenum without difficulty. No polyps, masses or ulcerations within the duodenum. Scope was slowly retracted back into stomach where it was further insufflated. Slight gastritis appearance. Biopsy of the antrum and body were obtained. Scope was retroflexed noting no other pathology. Scope was returned to its normal position, slowly withdrawn until distal esophagus. Biopsy of the GE junction was obtained. Scope was then slowly retracted back, noting no other pathology. Digital rectal exam was performed. No palpable polyps, masses or ulcerations. Scope was inserted in the rectum and advanced all the way to the cecum with minimal difficulty. Prep was adequate. Scope was slowly retracted back. No polyps, masses or ulcerations within the cecum, ascending, transverse, descending colon. Sigmoid portion, distal portion polyp was present, which hot biopsy polypectomy was performed. Also noted diverticulosis throughout the left colon. Once in the rectum, scope was retroflexed noting no other pathology. Scope was returned to its normal position, slowly withdrawn until completely removed. The patient tolerated the procedure well without complications, taken to recovery room in stable condition. RECOMMENDATIONS: The patient will repeat colonoscopy in 5 years. We would recommend high fiber diet due to diverticulosis. The patient will follow up on pathology and see if we can make any changes to his medications for his reflux. Job ID: [id number] DocumentID: [id number] Dictated Date: 06/26/2023 11:11:19 Float Builder Date: 06/26/2023 20:19:00 Dictated By: DESIRE MANN DO
== END 2023-06-26 11:45 | disposition home or self-care (01) ==
LOC: ENDO 08:37
PROVIDERS: ATTEND Surgery
DX: Z12.11 Encounter for screening for malignant neoplasm of colon (principal); D12.5 Benign neoplasm of sigmoid colon; K21.00 Gastro-esophageal reflux disease with esophagitis, without bleeding; K31.89 Other diseases of stomach and duodenum; K57.30 Diverticulosis of large intestine without perforation or abscess without bleeding; F17.210 Nicotine dependence, cigarettes, uncomplicated; Z80.0 Family history of malignant neoplasm of digestive organs
CPT/HCPCS: 88305